=== PATIENT | male | born 1955 | race Caucasian/White ===

== ENCOUNTER 2017-02-25 20:54 | Emergency (ER) | payer BC ==
[2013-12-07 14:10] VITALS: BMI 34.5
[~2017-02-25 20:54] MED LIST: BACTRIM DS TABL1 TAB PO; NORCO 10/325 TA1 TA1 PO
== END 2017-02-25 23:00 | disposition home or self-care (01) ==
LOC: D.ER 20:54
DX: T78.40XA Allergy, unspecified, initial encounter (principal); X58.XXXA Exposure to other specified factors, initial encounter

== ENCOUNTER → 2017-09-02 07:51 | Outpatient (CLI) | payer BC ==
[2013-12-07 14:10] VITALS: BMI 34.5
== END | disposition home or self-care (01) ==
LOC: D.MRI 07:51
DX: M54.12 Radiculopathy, cervical region (principal)